=== PATIENT | female | born 1970 | race African-American/Black ===

== ENCOUNTER 2018-09-20 13:31 | Inpatient (IN) | payer SELFPAY ==
[~2018-09-20] VITALS: Ht 149.9 cm; Wt 64.4 kg
[2018-09-20] MEDS ORDERED: KETOROLAC 30MG/ML VIAL IV ONE (16:15)
[2018-09-20 16:40] LABS: BASOPHILS % 0.6 % (0.0-2.0); EOSINOPHILS % 1.6 % (0.0-5.0); HEMATOCRIT. 35.8 % (36.0-48.0); HEMOGLOBIN. 11.9 g/dL (12.0-16.0); LYMPHOCYTES % 34.8 % (20.0-50.0); MEAN CORPUSCULAR HEMOGLOBIN 30.9 pg (28.0-32.0); MEAN CORPUSCULAR VOLUME 92.9 fL (81.0-99.0); MEAN PLATELET VOLUME 7.7 fl (7.4-10.4); MONOCYTES % 9.4 % (2.0-8.0); NEUTROPHILS % 53.6 % (40.0-76.0); PLATELET 255 x1000/uL (130-400); RED BLOOD CELL COUNT 3.85 mill/uL (4.2-5.4)
[2018-09-20 16:48] LABS: CHLORIDE 108 mEq/L (98-107)
[2018-09-20 16:56] LABS: HCG SCREEN NEGATIVE
[2018-09-20] MEDS ORDERED: GUAIFENESIN 200MG/10ML SUGAR FREE UDC PO PRN (18:45)
[2018-09-20] MEDS ORDERED: ACETAMINOPHEN 325MG TABLET PO PRN (18:45)
[2018-09-20] MEDS ORDERED: IPRATROPIUM/ALBUTEROL 0.5-3(2.5)MG/3ML NEB INH PRN (18:45)
[2018-09-20] MEDS ORDERED: DIPHENHYDRAMINE 50MG/ML VIAL IV PRN (18:45)
[2018-09-20] MEDS ORDERED: CLONIDINE 0.1MG TABLET PO PRN (18:45)
[2018-09-20] MEDS ORDERED: HYDRALAZINE 20MG/ML VIAL IV PRN (18:45)
[2018-09-20] MEDS ORDERED: DOCUSATE SODIUM 100MG CAPSULE PO PRN (18:45)
[2018-09-20] MEDS ORDERED: MAGNESIUM/ALUMINUM HYDROXIDE/SIMETHICONE 30ML UDC PO PRN (18:45)
[2018-09-20] MEDS ORDERED: LORAZEPAM 2MG/ML CPJ IV PRN (18:45)
[2018-09-20] MEDS: HYDROCODONE/ACETAMINOPHEN 10/325MG TABLET PO PRN (20:43)
[2018-09-20] MEDS ORDERED: NA PHOS,M-B/NA PHOS,DI-BA ENEMA 118ML PR PRN (21:00)
[2018-09-21] VITALS: BP 178/84
[2018-09-21] MEDS: HYDROMORPHONE HCL/PF 2MG/ML CPJ IV PRN ×6 (00:42→21:32)
[2018-09-21] MEDS: ONDANSETRON HCL 4MG/2ML INJ IV PRN ×2 (00:42→12:48)
[2018-09-21 01:17] LABS: CREATINE KINASE 144 IU/L (26-192)
[2018-09-21 01:18] LABS: CREATINE KINASE MB FRACTION 1.8 ng/mL (0.5-3.6)
[2018-09-21] MEDS ORDERED: HYDR25TA PO (02:33)
[2018-09-21] MEDS ORDERED: CLON0.1T PO (02:33)
[2018-09-21 04:00] VITALS: BP 158/85
[2018-09-21] MEDS: SODIUM CHLORIDE 0.9% INJ 3ML FLUSH IVF SCH ×3 (04:23→21:26)
[2018-09-21 07:13] LABS: BASOPHILS % 0.5 % (0.0-2.0); EOSINOPHILS % 1.1 % (0.0-5.0); HEMATOCRIT. 35.4 % (36.0-48.0); HEMOGLOBIN. 11.7 g/dL (12.0-16.0); LYMPHOCYTES % 32.1 % (20.0-50.0); MEAN CORPUSCULAR HEMOGLOBIN 31.3 pg (28.0-32.0); MEAN CORPUSCULAR VOLUME 94.7 fL (81.0-99.0); MEAN PLATELET VOLUME 8.4 fl (7.4-10.4); MONOCYTES % 8.1 % (2.0-8.0); NEUTROPHILS % 58.2 % (40.0-76.0); PLATELET 248 x1000/uL (130-400); RED BLOOD CELL COUNT 3.74 mill/uL (4.2-5.4); RED CELL DISTRIBUTION WIDTH 14.9 % (11.6-14.6)
[2018-09-21 08:03] LABS: CHLORIDE 108 mEq/L (98-107)
[2018-09-21 08:17] LABS: LDL CHOLESTEROL 87 mg/dL (5-100)
[2018-09-21 08:18] LABS: CREATINE KINASE 137 IU/L (26-192); CREATINE KINASE MB FRACTION 2.2 ng/mL (0.5-3.6)
[2018-09-21 08:19] LABS: HDL CHOLESTEROL 60 mg/dL (40-59); T4 FREE 0.98 ng/dL (0.76-1.46)
[2018-09-21 09:02] VITALS: BP 166/82
[2018-09-21] MEDS: ASPIRIN 81MG EC TABLET PO SCH (09:13)
[2018-09-21] MEDS: ENOXAPARIN 40MG/0.4ML SYR SUBCUT SCH (09:14)
[2018-09-21 12:43] VITALS: BP 155/93
[2018-09-21 15:17] LABS: CREATINE KINASE 131 IU/L (26-192)
[2018-09-21 15:18] LABS: CREATINE KINASE MB FRACTION 1.8 ng/mL (0.5-3.6)
[2018-09-21 16:11] VITALS: BP 156/94
[2018-09-21] MEDS: HYDRALAZINE HCL 50MG TABLET PO SCH ×2 (17:19→21:26)
[2018-09-21 20:00] VITALS: BP 140/86
[2018-09-21] MEDS: HYDROCODONE/ACETAMINOPHEN 10/325MG TABLET PO PRN (21:26)
[2018-09-21 23:53] LABS: CREATINE KINASE 122 IU/L (26-192)
[2018-09-21 23:56] LABS: CREATINE KINASE MB FRACTION 1.5 ng/mL (0.5-3.6)
[2018-09-22] VITALS: BP 156/75
[2018-09-22] MEDS: HYDROMORPHONE HCL/PF 2MG/ML CPJ IV PRN ×6 (01:33→22:41)
[2018-09-22 04:00] VITALS: BP 164/84
[2018-09-22] MEDS: SODIUM CHLORIDE 0.9% INJ 3ML FLUSH IVF SCH ×3 (05:08→21:47)
[2018-09-22] MEDS: HYDRALAZINE HCL 50MG TABLET PO SCH ×3 (05:08→21:47)
[2018-09-22 06:51] LABS: CREATINE KINASE 100 IU/L (26-192)
[2018-09-22 06:53] LABS: CREATINE KINASE MB FRACTION 1.1 ng/mL (0.5-3.6)
[2018-09-22 08:00] VITALS: BP 155/84
[2018-09-22] MEDS ORDERED: REGADENOSON 0.4 MG/5 ML IV ONE (08:15)
[2018-09-22] MEDS: ENOXAPARIN 40MG/0.4ML SYR SUBCUT SCH (08:15)
[2018-09-22] MEDS: ASPIRIN 81MG EC TABLET PO SCH (08:15)
[2018-09-22] MEDS: ONDANSETRON HCL 4MG/2ML INJ IV PRN (10:18)
[2018-09-22 12:00] VITALS: BP 147/81
[2018-09-22] MEDS ORDERED: IOHEXOL-350 100 ML BOTTLE ONE (12:34)
[2018-09-22 16:00] VITALS: BP 136/87
[2018-09-22 20:00] VITALS: BP 145/78
[2018-09-23] VITALS: BP 149/78
[2018-09-23] MEDS: HYDROMORPHONE HCL/PF 2MG/ML CPJ IV PRN ×3 (02:51→10:21)
[2018-09-23 03:59] VITALS: BP 155/84
[2018-09-23] MEDS: HYDRALAZINE HCL 50MG TABLET PO SCH (05:15)
[2018-09-23] MEDS: SODIUM CHLORIDE 0.9% INJ 3ML FLUSH IVF SCH (05:15)
[2018-09-23] MEDS: ONDANSETRON HCL 4MG/2ML INJ IV PRN (06:45)
[2018-09-23 08:00] VITALS: BP 140/82
[2018-09-23] MEDS: ASPIRIN 81MG EC TABLET PO SCH (10:21)
[2018-09-23] MEDS ORDERED: REGADENOSON 0.4 MG/5 ML IV ONE (10:58)
[2018-09-23 12:30] VITALS: BP 136/78
[2018-09-23 15:34] VITALS: BP 130/76
== END 2018-09-23 16:09 | disposition home or self-care (01) | DRG 204 ==
LOC: ER 13:31 → 6WST 18:22 → EDBEDREQ 18:25 → ENRESERV 20:48
PROVIDERS: ADMIT Internal Medicine; ATTEND Internal Medicine
DX: R55 Syncope and collapse (principal); E78.5 Hyperlipidemia, unspecified; R07.9 Chest pain, unspecified; I10 Essential (primary) hypertension; W18.39XA Other fall on same level, initial encounter; I25.2 Old myocardial infarction; Z90.49 Acquired absence of other specified parts of digestive tract; Z90.710 Acquired absence of both cervix and uterus; Z79.899 Other long term (current) drug therapy; Y93.89 Activity, other specified; Y92.89 Other specified places as the place of occurrence of the external cause; Y99.8 Other external cause status
CPT/HCPCS: 36415; 70486; 71045; 71275; 73030; 78452; 80061; 82550; 82553; 83036; 83880; 84439; 84443; 84484; 84703; 85379; 93005; 93017; 93306; 93880; 93970; 96374; 99285; A9500; J1170; J1650; J1885; J2405; J2785; Q9967